=== PATIENT | male | born 1970 | race Caucasian/White ===

== ENCOUNTER 2018-04-18 21:38 | Emergency (ER) | payer OTHER ==
[2018-04-18 21:47] VITALS: BP 156/75
[2018-04-18] MEDS ORDERED: Lidocaine 1% 50 ML MDV INJECT ONE (21:59)
--- NOTE | 2018-04-18 22:14 | EDM.PDOC ---
ED HPI GENERAL MEDICAL PROBLEM - General Chief Complaint: Laceration Stated Complaint: FINGER INJURY Time Seen by Provider: 04/18/18 21:50 Source of Information: Reports: Patient History Limitations: Reports: No Limitations - History of Present Illness INITIAL COMMENTS - FREE TEXT/NARRATIVE: 47-year-old male presents for evaluation and treatment of injury to the left hand second finger. Injury occurred around 1930 this evening. Patient reports he was using a external grinder tool in the external grinder tool "got away from him ." he is reporting a laceration to the left hand dorsal second finger. No numbness or tingling. No decreased range of motion. Bleeding is controlled prior to arrival. Last tetanus was about 3 years ago. Location: Reports: Upper Extremity, Left - Related Data Allergies Allergy/AdvReac Type Severity Reaction Status Date / Time No Known Allergies Allergy Verified 03/15/15 23:19 Home Meds: Home Meds Citalopram [Celexa] 20 mg PO DAILY 03/15/15 [History] Hydrochlorothiazide/Lisinopril [Lisinopril-HCTZ 10-12.5 MG] 1 tab PO DAILY 03/15 [History] Meloxicam 15 mg PO DAILY 03/15/15 [History] Cephalexin [Keflex] 500 mg PO BID #14 capsule 04/18/18 [Rx] Past Medical History - Past Surgical History Other Musculoskeletal Surgeries/Procedures:: knee replacment August 2014 Social & Family History - Family History Family Medical History: Noncontributory - Tobacco Use Smoking Status *Q: Never Smoker - Recreational Drug Use Recreational Drug Use: No - Living Situation & Occupation Living situation: Reports: Occupation: Employed ED ROS GENERAL - Review of Systems Review Of Systems: See Below Musculoskeletal: Reports: Hand Pain (no decreased ROM to the left hand) Skin: Reports: Wound (left hand dorsal 2nd finger just distal to the PIP jiont unlar aspect ) Neurological: Denies: Numbness, Tingling ED EXAM, SKIN/RASH Exam: See Below Exam Limited By: No Limitations General Appearance: Alert, WD/WN, No Apparent Distress Respiratory/Chest: No Respiratory Distress Cardiovascular: Normal Peripheral Pulses, Regular Rate, Rhythm Peripheral Pulses: 2+: Radial (L) Extremities: Normal Inspection, Normal Range of Motion (patient is able to flex and extend the finger with and without resistance, able to make a fist, able to adduct and abduct the fingers), Normal Capillary Refill Neurological: Alert, Oriented, Normal Cognition Psychiatric: Normal Affect, Normal Mood Skin: Warm, Dry, Normal Color, Wound/Incision (left hand dorsal 2nd finger just distal to the PIP jiont unlar aspect 1.5cm laceration, bleeding controlled) ED SKIN PROCEDURES - Laceration/Wound Repair Left Dorsal Digit - 2nd (Index) Lac/Wound length In cm: 1.5 Appearance: Subcutaneous, Linear Distal NVT: Neuro & Vascular Intact, No Tendon Injury Anesthetic Type: Local Local Anesthesia - Lidocaine (Xylocaine): 1% Plain Local Anesthetic Volume: 1cc Skin Prep: Chlorhexidine (Hibiciens), Saline, Sterile Drape Exploration/Debridement/Repair: Wound Explored, No Foreign Material Found Closed with: Sutures Suture Size: 4-0 # of Sutures: 3 Suture Type: Nylon, Interrupted, Simple Sterile Dressing Applied: Nurse Tetanus Status Addressed: Yes Complications: No Course - Vital Signs Last Recorded V/S: Last Vital Signs Temp 97.3 F 04/18/18 21:43 Pulse 49 L 04/18/18 21:43 Resp 16 04/18/18 21:43 BP 156/75 H 04/18/18 21:43 Pulse Ox 98 04/18/18 21:43 - Orders/Labs/Meds Meds: Medications Discontinued Medications Generic Name Dose Route Start Last Admin Trade Name Brown PRN Reason Stop Dose Admin Lidocaine HCl 50 ml 04/18/18 21:59 04/18/18 22:45 Xylocaine 1% INJECT 04/18/18 22:00 50 ml ONETIME ONE Administration - Re-Assessments/Exams Free Text/Narrative Re-Assessment/Exam: 04/18/18 22:39 3 sutures placed to the left dorsal second finger. Patient tolerated well. No complications. His tetanus is up-to-date. Discharge instructions as documented. Departure - Departure Time of Disposition: 22:39 Disposition: Home, Self-Care 01 Condition: Good Clinical Impression: Laceration - Discharge Information *PRESCRIPTION DRUG MONITORING PROGRAM REVIEWED*: No *COPY OF PRESCRIPTION DRUG MONITORING REPORT IN PATIENT CEDRIC: No Prescriptions: Cephalexin [Keflex] 500 mg PO BID #14 capsule Instructions: Laceration Care, Adult, [id number] Referrals: PCP,Not In Area [Ordering Only Provider] - Forms: ED Department Discharge Additional Instructions: Monitor the wounds for signs of infection such as increased swelling, pus or redness. Present to the clinic or the ER should these develop. [id number] Tylenol or Motrin as needed for pain. wash the wound with gentle soap and water twice a day. May apply antibacterial in such as Neosporin or bacitracin to the wound twice a day. Keep the wound covered. Keflex 1 tab twice a day for 7 days. [place] [facility] in [facility] is open 1pm to 3pm tomorrow. Have the sutures removed in 10 days. The [facility] clinic located on the east side of the [facility] is open 8 AM to 5 PM Thursday through Thursday. Call to schedule the provider there. May also return to the ER for suture removal. Please return to the ER if your symptoms change or worsen.
== END 2018-04-18 22:50 | disposition home or self-care (01) ==
LOC: JD.ED 21:38
DX: S61.211A Laceration without foreign body of left index finger without damage to nail, initial encounter (principal); Z79.899 Other long term (current) drug therapy; W26.8XXA Contact with other sharp object(s), not elsewhere classified, initial encounter
CPT/HCPCS: 12001; 99283-25